=== PATIENT | female | born 1965 | race Caucasian/White ===

== ENCOUNTER 2024-01-04 19:56 | Emergency (ER) | payer OTHER, SELFPAY ==
--- NOTE | ~2024-01-04 | XR_ITS ---
EXAMINATION: 1. Right hand. 2. Right forearm. CLINICAL INFORMATION: Fall. Pain. COMPARISON: None available. TECHNIQUE: 1. Right hand. 3 views 2. Right forearm. 2 views FINDINGS: 1. Right hand. No fracture. No dislocation. 2. Right forearm. No fracture. Elbow joint is unremarkable. XR/XR forearm RT 2V IMPRESSION: 1. Right hand. No acute abnormality. 2. Right forearm. No acute abnormality. Electronically signed by: Marty Kimble MD 01/04/2024 09:42 PM EDT
--- NOTE | ~2024-01-04 | XR_ITS ---
EXAMINATION: 1. Left hand 2. Left forearm. CLINICAL INFORMATION: Fall. Pain. COMPARISON: None. TECHNIQUE: 1. Left hand. 3 views 2. Left forearm. 2 views. FINDINGS: 1. Left hand. No fracture. No dislocation. Joint spaces are normal. 2. Left forearm. No fracture. No dislocation. XR/XR hand LT 2V IMPRESSION: 1. Normal left hand. 2. Normal left forearm. Electronically signed by: Marty Kimble MD 01/04/2024 09:40 PM EDT RP
--- NOTE | ~2024-01-04 | XR_ITS ---
EXAMINATION: 1. Left hand 2. Left forearm. CLINICAL INFORMATION: Fall. Pain. COMPARISON: None. TECHNIQUE: 1. Left hand. 3 views 2. Left forearm. 2 views. FINDINGS: 1. Left hand. No fracture. No dislocation. Joint spaces are normal. 2. Left forearm. No fracture. No dislocation. XR/XR forearm LT 2V IMPRESSION: 1. Normal left hand. 2. Normal left forearm. Electronically signed by: Marty Kimble MD 01/04/2024 09:40 PM EDT RP
--- NOTE | ~2024-01-04 | XR_ITS ---
EXAMINATION: 1. Right hand. 2. Right forearm. CLINICAL INFORMATION: Fall. Pain. COMPARISON: None available. TECHNIQUE: 1. Right hand. 3 views 2. Right forearm. 2 views FINDINGS: 1. Right hand. No fracture. No dislocation. 2. Right forearm. No fracture. Elbow joint is unremarkable. XR/XR hand RT 2V IMPRESSION: 1. Right hand. No acute abnormality. 2. Right forearm. No acute abnormality. Electronically signed by: Marty Kimble MD 01/04/2024 09:42 PM EDT
[2024-01-04 20:10] VITALS: BP 119/73; PULSE 78; RESP 18; TEMP 36.6; O2SAT 100; BMI 25.5
--- NOTE | 2024-01-04 20:15 | ED.GENADULT ---
HPI - General Adult General Chief complaint: Fall Stated complaint: fell down stairs/hurt both arms Time Seen by Provider: 01/04/24 22:06 Source: patient Mode of arrival: ambulatory Limitations: no limitations History of Present Illness ED Provider: Dr. Lyudmila Ruffin HPI narrative: patient comes to the emergency room complaining of bilateral upper extremity pain. Patient states that she was walking done her stairs at home, 3 steps before reaching the bottom patient's slipped, patient reached backwards to break the fall. Patient states that she did not hit her head and did not lose consciousness. Patient states that both of her hands and forearms hurt. Patient was able to get up and walk. Related Data Previous Rx's ?Medication ?Instructions ?Recorded cyclobenzaprine 5 mg tablet 5 mg PO TID PRN muscle spasm #7 01/04/24 tabs ketorolac 10 mg tablet 10 mg PO Q8H PRN pain #10 tabs 01/04/24 Allergies Allergy/AdvReac Type Severity Reaction Status Date / Time methylprednisolone Allergy Rash Verified 01/04/24 20:13 [From Solu-Medrol] metoclopramide [From Reglan] Allergy Shakiness Verified 01/04/24 20:13 Review of Systems Review of Systems: Constitutional : No Weight loss, No Fever, No Chills, No Night Sweats, No Fatigue, No Malaise ENT/Mouth : No Hearing loss, No Ear Pain, No Nasal Congestion, No Sinus Pain, No Hoarseness, No sore throat, No Rhinorrhea, No Swallowing Difficulty Eyes: No Eye Pain, No Swelling, No Redness, No Foreign Body, No Discharge, No Vision Changes Cardiovascular : No Chest Pain, No SOB, No Dyspnea on Exertion, No Orthopnea, No Edema, No Palpitations Respiratory : No Cough, No Sputum, No Wheezing, No Smoke Exposure, No Dyspnea Gastrointestinal : No Nausea, No Vomiting, No Diarrhea, No Constipation, No abdominal Pain, No Hematochezia, No Melena Genitourinary : no irregular bleeding, No Dysuria, No Urinary Frequency, No Hematuria, No Urinary Incontinence, No Urgency, No Flank Pain, No Urinary Flow Changes, No Hesitancy Musculoskeletal : Complaining of bilateral hand pain.No Myalgias, No Joint Swelling Skin : No Skin Lesions, No rash Neuro : No Weakness, No Numbness, No Paresthesias, No Loss of Consciousness, No Dizziness, No Headache Psych : No Anxiety/Panic, No Depression, No SI/HI/AH/VH, No Social Issues, Heme/Lymph: No Bruising, No Bleeding,No Lymphadenopathy Endocrine : No Polyuria, No Polydipsia, No Temperature Intolerance [facility] Social History Social History Advance Directives: No Advance Directives Information Provided: No Do you have a plan to hurt others: No Plan Physical Exam ED Vital Signs: Vital Signs - 24 hr 01/04/24 20:10 Temperature 97.9 F Pulse Rate 78 Respiratory Rate 18 Blood Pressure 119/73 Pulse Oximetry 100 Oxygen Delivery Method Room Air BMI result Body Mass Index 25.5 Const Other: Appearance: Alert. Oriented X3. No acute distress. Eyes: Pupils equal, round and reactive to light. ENT: Pharynx normal. Neck: Normal inspection. Neck supple. No lymph nodes noted. No crepitus CVS: Normal heart rate and rhythm. Pulses normal. Normal S1 and S2 Respiratory: No respiratory distress. Breath sounds normal. No Wheezing. No rales Abdomen: Soft and nontender. No rigidity. No distention. Skin: Skin warm and dry. Normal skin color. Normal skin turgor. Extremities: No lower extremity edema. No Lacerations. No Rash . Patient able to flex and extend all fingers, wrists, elbows and shoulders. Patient able to walk unassisted. Neuro: Oriented X 3. No motor deficit. No sensory deficit. Moving all extremities. No slurred speech. CN 2 through 12 grossly intact Psych: calm, cooperative, normal affect Course Course Course Narrative: RME, this is a rapid medical exam performed by Jameson Yee please refer to primary provider for complete H&P- 58-year-old female presents for evaluation of bilateral arm and hand pain. Patient reports slipping down the last 3 steps of her stairs. She fell with her hands outstretched reports injuring both of her forearms. She denies hitting her head or losing consciousness. jewelry removed in triage and given to . Plan for x-rays Medical Decision Making Medical Decision Making [facility] Narrative: My interpretation of x-rays: No obvious abnormality. Discussed with the patient based on her physical exam and radiological finding that she likely has a combination of contusions and wrist sprains. - Patient was given IM ketorolac. Patient declined getting any muscle relaxants at this time. Patient would like to have a prescription using case she needs it at bedtime. Differential Diagnosis Differential Diagnoses: The differential diagnosis associated with the presentation includes ( Sprain forearm contusion, dislocation, fracture) Independent Interpretation I performed an independent interpretation of an: Plain X-Ray Radiology Impression Discussion of test interpretation with radiology: I have reviewed the radiologist's reading. Radiologist Impression: IMPRESSION: 1. Right hand. No acute abnormality. 2. Right forearm. No acute abnormality. IMPRESSION: 1. Right hand. No acute abnormality. 2. Right forearm. No acute abnormality. Discharge Plan Discharge Clinical Impression: Fall, Contusion, Sprain of wrist Patient Disposition: Home, Self-Care Instructions: Sprain (ED), Fall Prevention (ED) Additional Instructions: Please follow-up with your primary care physician tomorrow. If you have any worsening or new symptoms, please return to the emergency room or call 911 Prescriptions: New ketorolac 10 mg tablet 10 mg PO Q8H PRN (Reason: pain) Qty: 10 0RF Rx Instructions: maximum total duration of 5 days from all oral, intranasal, or parenteral formulations cyclobenzaprine 5 mg tablet 5 mg PO TID PRN (Reason: muscle spasm) Qty: 7 0RF Print Language: Swedish
[2024-01-04 22:40] VITALS: BP 112/71; PULSE 73; RESP 16; TEMP 36.7; O2SAT 99
[2024-01-04] MEDS: Ketorolac Tromethamine 60 MG/2 ML VIAL IM (22:44)
[2024-01-04 23:00] VITALS: BP 112/71; PULSE 73; RESP 16; TEMP 36.7; O2SAT 99
== END 2024-01-04 23:00 | disposition home or self-care (01) ==
PROVIDERS: Emergency Provider Emergency Medicine; PCP Family Medicine
DX: S63.501A Unspecified sprain of right wrist, initial encounter (principal); S63.92XA Sprain of unspecified part of left wrist and hand, initial encounter; M79.602 Pain in left arm; M79.601 Pain in right arm; W10.9XXA Fall (on) (from) unspecified stairs and steps, initial encounter; Y93.9 Activity, unspecified; Y92.89 Other specified places as the place of occurrence of the external cause; Y99.8 Other external cause status
CPT/HCPCS: 73090; 73120; 96372; 99283; 99284; J1885